=== PATIENT | male | born 1980 | race Caucasian/White ===

== ENCOUNTER 2016-12-26 10:30 | Inpatient (IN) | payer OTHER ==
[~2016-12-26] VITALS: Ht 180.3 cm; Wt 81.6 kg
[2016-12-26 11:24] VITALS: BP 120/72
[2016-12-26 15:02] LABS: BASO # 0.1 10*3/uL (0.0-0.1); BASO % 1.7 % (0.0-1.0); EOS # 0.2 10*3/uL (0.0-0.4); EOS % 3.1 % (1.0-4.0); HEMATOCRIT 46.1 % (42.0-52.0); HEMOGLOBIN 15.2 g/dl (14.0-18.0); LYMPH # 2.1 10*3/uL (1.3-4.4); LYMPH % 41.2 % (27.0-41.0); MEAN CELL VOLUME 88.1 fl (80.0-94.0); MEAN CORPUSCULAR HGB 29.1 pg (27.0-31.0); MEAN PLATELET VOLUME 8.9 fl (9.6-12.3); MONO # 0.3 10*3/uL (0.1-1.0); MONO % 6.3 % (3.0-9.0); NEUT # 2.5 10*3/uL (2.3-7.9); NEUT % 47.5 % (47.0-73.0); PLATELET COUNT AUTOMATED 303 10*3/uL (130-400); RED BLOOD COUNT 5.23 10*6/uL (4.50-5.90); RED CELL DISTRI WIDTH 12.7 % (0-14.5); WHITE BLOOD COUNT 5.2 10*3/uL (4.8-10.8)
[2016-12-26 15:04] LABS: BILIRUBIN NEGATIVE (NEGATIVE); BLOOD NEGATIVE (NEGATIVE); CLARITY CLEAR (CLEAR); COLOR YELLOW (YELLOW); GLUCOSE NEGATIVE (NEGATIVE); KETONE NEGATIVE (NEGATIVE); LEUKO ESTERASE NEGATIVE (NEGATIVE); NITRITE NEGATIVE (NEGATIVE); PH 5.5 (5.0-9.0); PROTEIN NEGATIVE (NEGATIVE); SPECIFIC GRAVITY <= 1.005 (1.005-1.030); UROBILINOGEN 0.2 E.U./dl (0.2-1.0)
[2016-12-26 15:09] LABS: INTERNATIONAL NORM RATIO 0.9 (2.0-3.5)
[2016-12-26 15:16] LABS: URINE BARBITURATES < 200 (200ng/ml); URINE COCAINE > 300 (300ng/ml)
[2016-12-26 15:20] LABS: ALBUMIN 4.2 gm/dl (3.1-4.5); ALKALINE PHOSPHATASE 79 U/L (45-117); BILIRUBIN, TOTAL 0.5 mg/dl (0.2-1.0); BUN 8 mg/dl (7-24); CARBON DIOXIDE 31 mmol/L (21-32); CHLORIDE 105 mmol/L (98-107); EST GLOM FILT AFRICAN AMERICAN > 60 ml/min; GLUCOSE 90 mg/dL (65-99); POTASSIUM 4.5 mmol/L (3.5-5.1); SGOT/AST 25 IU/L (3-35); SGPT/ALT 45 U/L (12-78); SODIUM 143 mmol/L (136-145); TOTAL PROTEIN 7.4 gm/dL (6.4-8.2)
[2016-12-26 15:21] LABS: URINE AMPHETAMINES < 1000 (1000ng/ml)
[2016-12-26 15:26] LABS: EPITHELIAL CELLS 0-2; URINE REFLEX COMMENT NO (NO); WBC 0-2 wbc/hpf (0-5)
[2016-12-26 16:00] VITALS: BP 126/71
[2016-12-26 20:00] VITALS: BP 130/65
[2016-12-27] VITALS: BP 136/72
[2016-12-27 06:00] VITALS: BP 127/66
[2016-12-27 08:00] VITALS: BP 124/90
[2016-12-27 12:00] VITALS: BP 120/82
[2016-12-27 20:00] VITALS: BP 107/44
[2016-12-28] VITALS: BP 118/74
[2016-12-28 08:00] VITALS: BP 126/81
[2016-12-28 12:00] VITALS: BP 136/63
[2016-12-28 16:00] VITALS: BP 118/78
[2016-12-28 20:00] VITALS: BP 117/67
[2016-12-29] VITALS: BP 110/68
[2016-12-29] MEDS ORDERED: ZOFRAN 4 MG ED2 TAB PO (07:39)
[2016-12-29] MEDS ORDERED: ATARAX,VISTARIL50 MG PO (07:39)
[2016-12-29] MEDS ORDERED: ROPINIROLE HYD0.5 MG PO (07:39)
[2016-12-29 08:00] VITALS: BP 127/84
== END 2016-12-29 11:18 | disposition home or self-care (01) | DRG 897 ==
LOC: EDHOLD 10:30 → 5E 10:40
PROVIDERS: Internal Medicine
DX: F11.23 Opioid dependence with withdrawal (principal); F14.10 Cocaine abuse, uncomplicated; F17.200 Nicotine dependence, unspecified, uncomplicated; F12.10 Cannabis abuse, uncomplicated; Z71.6 Tobacco abuse counseling